=== PATIENT | female | born 1950 ===

== ENCOUNTER 2019-02-27 23:51 | Emergency (ER) | payer MEDICARE ==
[~2019-02-27] VITALS: Ht 175.3 cm; Wt 95.5 kg
[2019-02-28 00:03] LABS: GLUCOSE,POINT OF CARE 227 MG/DL (70-110)
[2019-02-28] MEDS ORDERED: LOSA50TA64 PO (00:12)
[2019-02-28] MEDS ORDERED: AMLO-511 PO (00:12)
[2019-02-28] MEDS ORDERED: INSU100I26 SQ (00:12)
[2019-02-28] MEDS ORDERED: PANT40TA25 PO (00:12)
[2019-02-28] MEDS ORDERED: DULA1.5P SQ (00:12)
[2019-02-28 01:05] VITALS: BP 100/38
== END 2019-02-28 01:25 | disposition home or self-care (01) ==
LOC: EMS 23:51
DX: S09.90XA Unspecified injury of head, initial encounter (principal); R11.2 Nausea with vomiting, unspecified; E11.9 Type 2 diabetes mellitus without complications; I10 Essential (primary) hypertension; Z79.4 Long term (current) use of insulin; W18.09XA Striking against other object with subsequent fall, initial encounter; Y93.89 Activity, other specified; Y92.89 Other specified places as the place of occurrence of the external cause; Y99.8 Other external cause status